=== PATIENT | male | born 2000 | race Caucasian/White ===

== ENCOUNTER 2018-06-21 21:07 | Emergency (ER) | payer OTHER ==
[2018-06-21 21:26] VITALS: BP 127/83
[2018-06-21] MEDS ORDERED: Bacitracin Oint 1 GM U/D Packet TOP ONE (22:03)
[2018-06-21] MEDS ORDERED: Lidocaine 1% 30 ML SDV INJECT ONE (22:03)
[2018-06-21] MEDS ORDERED: Ibuprofen 600 MG Tab PO ONE (22:52)
--- NOTE | 2018-06-21 23:00 | EDM.PDOC ---
ED HPI GENERAL MEDICAL PROBLEM - General Chief Complaint: Laceration Stated Complaint: FINGER CUT BLEADING [id number] Time Seen by Provider: 06/21/18 22:10 Source of Information: Reports: Patient History Limitations: Reports: No Limitations - History of Present Illness INITIAL COMMENTS - FREE TEXT/NARRATIVE: cut part of left thumb off while cutting up sweet potatoes. Right 1-Thumb Pain Score (Numeric/FACES): 6 - Related Data Allergies Allergy/AdvReac Type Severity Reaction Status Date / Time mold Allergy Cannot Verified 06/21/18 21:23 Remember Home Meds: Home Meds . [No Known Home Meds] 06/21/18 [History] Past Medical History - Past Surgical History HEENT Surgical History: Reports: Myringotomy w Tube(s), Naso-Sinus Surgery Social & Family History - Tobacco Use Smoking Status *Q: Never Smoker - Caffeine Use Caffeine Use: Reports: None - Recreational Drug Use Recreational Drug Use: No ED ROS GENERAL - Review of Systems Review Of Systems: ROS reveals no pertinent complaints other than HPI. ED EXAM, SKIN/RASH Exam: See Below Exam Limited By: No Limitations General Appearance: Alert, Mild Distress Eye Exam: Bilateral Eye: EOMI Ears: Normal External Exam Nose: Normal Inspection Throat/Mouth: Normal Inspection, Normal Lips, Normal Voice Head: Atraumatic, Normocephalic Neck: Normal Inspection Respiratory/Chest: No Respiratory Distress Cardiovascular: Normal Peripheral Pulses, Regular Rate, Rhythm Extremities: Normal Range of Motion Neurological: Alert, Oriented, Normal Cognition Psychiatric: Normal Affect Skin: Warm, Wound/Incision (1.5x.5 avulsion outer left thumb pad bleeding controlled with pressure, nail intact. wound bed clean ) ED SKIN PROCEDURES - Laceration/Wound Repair Left Sides of Other Lac/Wound length In cm: 1.5 Appearance: Superficial, Clean Distal NVT: Neuro & Vascular Intact, No Tendon Injury Skin Prep: Chlorhexidine (Hibiciens), Saline Exploration/Debridement/Repair: Wound Explored Sterile Dressing Applied: Provider Tetanus Status Addressed: Yes Complications: No Progress/Comments: Surgicel 4x4 dressing . No further bleeding. Course - Vital Signs Last Recorded V/S: Last Vital Signs Temp 99.3 F 06/21/18 21:23 Pulse 113 H 06/21/18 21:23 Resp 18 06/21/18 21:23 BP 127/83 06/21/18 21:23 Pulse Ox 98 06/21/18 21:23 - Orders/Labs/Meds Meds: Medications Discontinued Medications Generic Name Dose Route Start Last Admin Trade Name Pamela PRN Reason Stop Dose Admin Bacitracin 1 dose 06/21/18 22:03 Bacitracin Oint 1 Gm TOP 06/21/18 22:04 ONETIME ONE Ibuprofen 600 mg 06/21/18 22:52 06/21/18 23:02 Motrin PO 06/21/18 22:53 600 mg ONETIME ONE Administration Lidocaine HCl 30 ml 06/21/18 22:03 Xylocaine-Mpf 1% INJECT 06/21/18 22:04 ONETIME ONE Departure - Departure Time of Disposition: 23:04 Disposition: Home, Self-Care 01 Condition: Good Clinical Impression: Avulsion of skin of finger Qualifiers: Encounter type: initial encounter Qualified Code(s): S61.209A - Unspecified open wound of unspecified finger without damage to nail, initial encounter - Discharge Information *PRESCRIPTION DRUG MONITORING PROGRAM REVIEWED*: No Instructions: Laceration Care, Adult, [id number] Forms: ED Department Discharge Additional Instructions: Clinic, dressing change on Saturday If unable to get into clinic, for dressing change- moisten dressing prior to removal, wash gently, antibiotic ointment tthen non adherant dressing Dressing change at least twice daily after original dressing change tylenol or ibuprofen for discomfort elevate extremity tonight urgent follow up , uncntrolled bleeding,, redness, swelling or drainage from wound
== END 2018-06-21 23:12 | disposition home or self-care (01) ==
LOC: DL.ED 21:07
DX: S61.001A Unspecified open wound of right thumb without damage to nail, initial encounter (principal); Z91.048 Other nonmedicinal substance allergy status; W45.8XXA Other foreign body or object entering through skin, initial encounter
CPT/HCPCS: 12001; 99282; A9270